=== PATIENT | female | born 1935 | race Caucasian/White ===

== ENCOUNTER → 2016-07-14 | Outpatient (CLI) | payer MEDICARE ==
[~2016-07-14] MED LIST: ACET325T14 PO; CEFD300C2 PO; CLOP75TA PO; FENO160T PO; GLIM1TAB2 PO; GLIP2.5T3 PO; LEVO750T26 PO; LINA5TAB PO; LISI-167 PO; LOVA40TA2 PO; METF10002 PO; METF500T4 PO; METH4TAB2 PO; METO25TA35 PO; MICA100V IV; NYST60PO TP; TRAM50TA2 PO
== END | disposition home or self-care (01) ==
LOC: RAD 14:17
PROVIDERS: ATTEND Family Medicine
DX: Z20.1 Contact with and (suspected) exposure to tuberculosis (principal); I34.8 Other nonrheumatic mitral valve disorders
CPT/HCPCS: 71020

== ENCOUNTER 2016-07-15 12:49 | Inpatient (IN) | payer MEDICARE ==
[~2016-07-15] VITALS: Ht 152.4 cm; Wt 54.7 kg
[~2016-07-15 12:49] MED LIST changes: -ACET325T14 PO; -GLIP2.5T3 PO; -METF500T4 PO; -METH4TAB2 PO; -TRAM50TA2 PO
[2016-07-15] MEDS ORDERED: IBUPROFEN 200 MG TABLET PO ONE (13:00)
[2016-07-15] MEDS ORDERED: IBUPROFEN 200 MG TABLET ONE (13:12)
[2016-07-15] MEDS ORDERED: METF500T4 PO (14:10)
[2016-07-15] MEDS ORDERED: LISI-167 PO (14:10)
[2016-07-15] MEDS ORDERED: GLIP2.5T3 PO (14:10)
[2016-07-15] MEDS ORDERED: ENALAPRILAT 1.25 MG/ML, 2ML IV ONE (15:00)
[2016-07-15] MEDS ORDERED: LABETALOL 5MG/ML, 20ML IVPush ONE (15:00)
[2016-07-15] MEDS ORDERED: ENALAPRILAT 1.25 MG/ML, 2ML ONE (15:02)
[2016-07-15 16:37] LABS: HEMOGLOBIN 12.2 g/dL (11.7-16.4)
[2016-07-15 16:46] LABS: BLOOD UREA NITROGEN 29 mg/dL (7-18)
[2016-07-15] MEDS ORDERED: methylPREDNISolone SOD SUCC 125 MG/2 ML IV ONE (17:00)
[2016-07-15] MEDS: INSULIN REGULAR 100 UNITS/ML, 3ML VIAL SQ-INSULIN SCH ×2 (17:00→21:58)
[2016-07-15] MEDS ORDERED: ONDANSETRON 2MG/ML, 2ML IVP PRN (17:00)
[2016-07-15] MEDS ORDERED: DOCUSATE 100 MG CAPSULE PO PRN (17:00)
[2016-07-15] MEDS ORDERED: methylPREDNISolone SOD SUCC 40 MG/ML IV ONE (17:00)
[2016-07-15] MEDS ORDERED: methylPREDNISolone SOD SUCC 125 MG/2 ML ONE (17:06)
[2016-07-15] MEDS ORDERED: LIDODERM 5% PATCH TD SCH (19:00)
[2016-07-15] MEDS ORDERED: ENOXAPARIN 40 MG/0.4 ML SQ SCH (19:00)
[2016-07-15] MEDS ORDERED: LOVASTATIN 40 MG TABLET PO SCH (21:00)
[2016-07-15] MEDS: METOPROLOL TARTRATE 25 MG TABLET PO SCH (21:57)
[2016-07-15] MEDS: FAMOTIDINE 20 MG TABLET PO SCH (21:57)
[2016-07-15] MEDS: LISINOPRIL 10 MG TABLET PO SCH (21:57)
[2016-07-16 02:13] VITALS: BP 131/64
[2016-07-16 05:35] LABS: HEMOGLOBIN 11.8 g/dL (11.7-16.4)
[2016-07-16 06:14] LABS: BLOOD UREA NITROGEN 36 mg/dL (7-18)
[2016-07-16] MEDS: ACETAMINOPHEN 325 MG TABLET PO PRN ×2 (07:51→13:20)
[2016-07-16] MEDS: METOPROLOL TARTRATE 25 MG TABLET PO SCH (07:52)
[2016-07-16] MEDS: INSULIN REGULAR 100 UNITS/ML, 3ML VIAL SQ-INSULIN SCH ×2 (07:52→11:00)
[2016-07-16] MEDS: FAMOTIDINE 20 MG TABLET PO SCH (07:53)
[2016-07-16] MEDS: LISINOPRIL 10 MG TABLET PO SCH (07:59)
[2016-07-16] MEDS ORDERED: GLIPizide ER 2.5 MG TABLET PO SCH (09:00)
[2016-07-16 10:32] VITALS: BP 157/71
[2016-07-16] MEDS ORDERED: ACET325T14 PO (10:44)
[2016-07-16] MEDS ORDERED: TRAM50TA2 PO (10:44)
[2016-07-16] MEDS ORDERED: METH4TAB2 PO (10:44)
[2016-07-16 13:13] VITALS: BP 187/70
[2016-07-16] MEDS ORDERED: ENOXAPARIN 30 MG/0.3 ML SQ SCH (19:00)
== END 2016-07-16 15:24 | disposition home or self-care (01) | DRG 542 ==
LOC: ED 14:20 → EDIP 16:54 → 3NE 18:18
PROVIDERS: ADMIT Hospitalist; ATTEND Hospitalist
PROC: 0T9B70Z Drainage of Bladder with Drainage Device, Via Natural or Artificial Opening (ICD-10-PCS; principal; 2016-07-15)
DX: M48.56XA Collapsed vertebra, not elsewhere classified, lumbar region, initial encounter for fracture (principal); I63.9 Cerebral infarction, unspecified; G81.94 Hemiplegia, unspecified affecting left nondominant side; M54.9 Dorsalgia, unspecified; E11.9 Type 2 diabetes mellitus without complications; E78.5 Hyperlipidemia, unspecified; F03.90 Unspecified dementia, unspecified severity, without behavioral disturbance, psychotic disturbance, mood disturbance, and anxiety; Z66 Do not resuscitate; G51.0 Bell's palsy; I16.0 Hypertensive urgency; I11.0 Hypertensive heart disease with heart failure; I50.9 Heart failure, unspecified; M19.90 Unspecified osteoarthritis, unspecified site; M48.06 Spinal stenosis, lumbar region; R32 Unspecified urinary incontinence; Z83.3 Family history of diabetes mellitus; Z88.8 Allergy status to other drugs, medicaments and biological substances; Z90.710 Acquired absence of both cervix and uterus; Z86.73 Personal history of transient ischemic attack (TIA), and cerebral infarction without residual deficits; Z90.49 Acquired absence of other specified parts of digestive tract
CPT/HCPCS: 36415; 72131; 72148; 80048; 81001; 82040; 82962; 85025; 87086; 87106; 96374; 96375; J1650; J1815; J2920; J7512

== ENCOUNTER → 2016-12-09 | Outpatient (CLI) | payer MEDICARE ==
[~2016-12-09] MED LIST changes: +ACET325T14 PO; -CEFD300C2 PO; +CEFD300C37 PO; +GLIP2.5T3 PO; +METF500T4 PO; +METH4TAB2 PO; -MICA100V IV; +MICA100V3 IV; +TRAM50TA2 PO
== END | disposition home or self-care (01) ==
LOC: CFH 14:16
PROVIDERS: ATTEND Family Medicine
DX: Z13.820 Encounter for screening for osteoporosis (principal); M81.0 Age-related osteoporosis without current pathological fracture; N95.9 Unspecified menopausal and perimenopausal disorder
CPT/HCPCS: 77080

== ENCOUNTER 2017-01-24 07:30 | Inpatient (IN) | payer MEDICARE ==
[~2017-01-24] VITALS: Ht 152.4 cm; Wt 58.8 kg
[2017-01-24] MEDS ORDERED: ACETAMINOPHEN 325 MG TABLET ONE (07:46)
[2017-01-24] MEDS ORDERED: ONDANSETRON 2MG/ML, 2ML ONE (07:46)
[2017-01-24] MEDS ORDERED: ACETAMINOPHEN 325 MG TABLET PO ONE (08:00)
[2017-01-24] MEDS ORDERED: SODIUM CHLORIDE FLUSH 10ML SYR IVF ONE (08:00)
[2017-01-24] MEDS ORDERED: SODIUM CHLORIDE 0.9% 1,000ML IVBOLUS ONE (08:00)
[2017-01-24] MEDS ORDERED: ONDANSETRON 2MG/ML, 2ML IVPush ONE (08:00)
[2017-01-24 08:08] LABS: HEMATOCRIT 38.6 % (34.6-47.8); HEMOGLOBIN 12.9 g/dL (11.7-16.4); WHITE BLOOD COUNT 10.9 x10^3/uL (3.4-10)
[2017-01-24 08:30] LABS: BLOOD UREA NITROGEN 29 mg/dL (7-18)
[2017-01-24] MEDS ORDERED: CEFTRIAXONE PMX 1GM/50ML 50 ML IVPB ONE (09:00)
[2017-01-24] MEDS ORDERED: CEFTRIAXONE PMX 1GM/50ML 50 ML ONE (09:01)
[2017-01-24] MEDS ORDERED: SODIUM CHLORIDE 0.9% 1,000 ML IV ONE (09:02)
[2017-01-24] MEDS ORDERED: SODIUM CHLORIDE FLUSH 10ML SYR IVF PRN (09:30)
[2017-01-24] MEDS: SODIUM CHLORIDE 0.9% 1,000 ML IV SCH ×2 (09:44→21:34)
[2017-01-24] MEDS ORDERED: DEXTROSE 50%, 50ML SYRINGE IVPush PRN (10:00)
[2017-01-24] MEDS ORDERED: DOCUSATE 100 MG CAPSULE PO PRN (10:00)
[2017-01-24] MEDS ORDERED: BISACODYL 10 MG SUPP PR PRN (10:00)
[2017-01-24] MEDS ORDERED: ONDANSETRON ODT 4 MG PO PRN (10:00)
[2017-01-24] MEDS ORDERED: POLYETHYLENE GLYCOL 17 GM PACKET PO PRN (10:00)
[2017-01-24] MEDS ORDERED: ACETAMINOPHEN 325 MG TABLET PO PRN (10:00)
[2017-01-24] MEDS ORDERED: ONDANSETRON 2MG/ML, 2ML IVPush PRN (10:00)
[2017-01-24] MEDS ORDERED: GLUCAGON 1 MG IM PRN (10:00)
[2017-01-24] MEDS ORDERED: DEXTROSE 4 GM TAB.CHEW PO PRN (10:00)
[2017-01-24 12:13] VITALS: BP 196/79
[2017-01-24] MEDS: HEPARIN 5,000 UNITS/ML, 1ML SQ SCH ×3 (12:22→21:33)
[2017-01-24 13:43] VITALS: BP 172/78
[2017-01-24] MEDS: INSULIN REGULAR 100 UNITS/ML, 3ML VIAL SQ-INSULIN SCH ×3 (13:54→21:00)
[2017-01-24] MEDS: NYSTATIN/TRIAMCINOLONE CRM 15GM TP SCH ×2 (13:54→21:32)
[2017-01-24 19:52] VITALS: BP 163/72
[2017-01-24] MEDS: METOPROLOL TARTRATE 25 MG TABLET PO SCH (21:33)
[2017-01-24] MEDS: SODIUM CHLORIDE FLUSH 10ML SYR IVF SCH (21:33)
[2017-01-24] MEDS: LOVASTATIN 40 MG TABLET PO SCH (21:33)
[2017-01-25] VITALS (10 sets, daily range): BP systolic 130–217; BP diastolic 56–81
[2017-01-25] MEDS: LABETALOL 5MG/ML, 20ML IVPush PRN ×2 (02:21→08:35)
[2017-01-25 05:11] LABS: HEMATOCRIT 32.5 % (34.6-47.8); HEMOGLOBIN 10.9 g/dL (11.7-16.4); WHITE BLOOD COUNT 5.9 x10^3/uL (3.4-10)
[2017-01-25] MEDS: HEPARIN 5,000 UNITS/ML, 1ML SQ SCH ×3 (05:34→20:18)
[2017-01-25 05:36] LABS: ASPARTATE AMINO TRANSFERASE 19 U/L (15-37); BLOOD UREA NITROGEN 20 mg/dL (7-18)
[2017-01-25] MEDS: CLOPIDOGREL 75 MG TABLET PO SCH (08:15)
[2017-01-25] MEDS: METOPROLOL TARTRATE 25 MG TABLET PO SCH ×2 (08:16→20:19)
[2017-01-25] MEDS: INSULIN REGULAR 100 UNITS/ML, 3ML VIAL SQ-INSULIN SCH ×4 (08:19→20:19)
[2017-01-25] MEDS: SODIUM CHLORIDE FLUSH 10ML SYR IVF SCH ×2 (08:20→20:19)
[2017-01-25] MEDS: NYSTATIN/TRIAMCINOLONE CRM 15GM TP SCH ×2 (08:21→20:18)
[2017-01-25] MEDS: SENNA/DOCUSATE TABLET PO SCH (08:35)
[2017-01-25] MEDS: CEFTRIAXONE PMX 1GM/50ML 50 ML IV SCH (08:57)
[2017-01-25] MEDS: LISINOPRIL 10 MG TABLET PO SCH ×2 (10:12→20:19)
[2017-01-25] MEDS: SODIUM CHLORIDE 0.9% 1,000 ML IV SCH (12:05)
[2017-01-25] MEDS: hydrALAzine 20 MG/ML, 1ML IV PRN (17:18)
[2017-01-25] MEDS: LOVASTATIN 40 MG TABLET PO SCH (20:19)
[2017-01-26] VITALS (7 sets, daily range): BP systolic 124–182; BP diastolic 56–80
[2017-01-26] MEDS: SODIUM CHLORIDE 0.9% 1,000 ML IV SCH (02:02)
[2017-01-26] MEDS: hydrALAzine 20 MG/ML, 1ML IV PRN ×2 (02:33→17:53)
[2017-01-26] MEDS: HEPARIN 5,000 UNITS/ML, 1ML SQ SCH ×3 (04:31→21:24)
[2017-01-26] MEDS: INSULIN REGULAR 100 UNITS/ML, 3ML VIAL SQ-INSULIN SCH ×4 (07:46→21:25)
[2017-01-26] MEDS: CEFTRIAXONE PMX 1GM/50ML 50 ML IV SCH ×2 (08:56→09:04)
[2017-01-26] MEDS: SODIUM CHLORIDE FLUSH 10ML SYR IVF SCH ×2 (08:57→21:24)
[2017-01-26] MEDS: METOPROLOL TARTRATE 25 MG TABLET PO SCH ×2 (09:06→21:24)
[2017-01-26] MEDS: LISINOPRIL 10 MG TABLET PO SCH ×2 (09:07→21:24)
[2017-01-26] MEDS: SENNA/DOCUSATE TABLET PO SCH (09:08)
[2017-01-26] MEDS: CLOPIDOGREL 75 MG TABLET PO SCH (09:09)
[2017-01-26] MEDS: NYSTATIN/TRIAMCINOLONE CRM 15GM TP SCH ×2 (12:08→21:25)
[2017-01-26] MEDS: LOVASTATIN 40 MG TABLET PO SCH (21:24)
[2017-01-27] VITALS (7 sets, daily range): BP systolic 145–215; BP diastolic 57–76
[2017-01-27] MEDS: HEPARIN 5,000 UNITS/ML, 1ML SQ SCH ×3 (06:12→20:38)
[2017-01-27] MEDS: INSULIN REGULAR 100 UNITS/ML, 3ML VIAL SQ-INSULIN SCH ×4 (07:49→20:37)
[2017-01-27] MEDS: SENNA/DOCUSATE TABLET PO SCH (08:29)
[2017-01-27] MEDS: LISINOPRIL 10 MG TABLET PO SCH (08:29)
[2017-01-27] MEDS: SODIUM CHLORIDE FLUSH 10ML SYR IVF SCH ×2 (08:29→20:15)
[2017-01-27] MEDS: METOPROLOL TARTRATE 25 MG TABLET PO SCH ×2 (08:29→20:37)
[2017-01-27] MEDS: CLOPIDOGREL 75 MG TABLET PO SCH (08:29)
[2017-01-27] MEDS: NYSTATIN/TRIAMCINOLONE CRM 15GM TP SCH ×2 (08:29→20:38)
[2017-01-27] MEDS: CEFTRIAXONE PMX 1GM/50ML 50 ML IV SCH (09:14)
[2017-01-27] MEDS ORDERED: NITR100C PO (15:25)
[2017-01-27] MEDS: LOVASTATIN 40 MG TABLET PO SCH (20:37)
[2017-01-27] MEDS: LISINOPRIL 20 MG TABLET PO SCH (20:38)
[2017-01-28 02:00] VITALS: BP 178/72
[2017-01-28] MEDS: HEPARIN 5,000 UNITS/ML, 1ML SQ SCH ×2 (05:00→12:04)
[2017-01-28] MEDS: INSULIN REGULAR 100 UNITS/ML, 3ML VIAL SQ-INSULIN SCH ×2 (07:00→12:03)
[2017-01-28 07:57] VITALS: BP 173/70
[2017-01-28] MEDS: METOPROLOL TARTRATE 25 MG TABLET PO SCH (08:00)
[2017-01-28] MEDS: CLOPIDOGREL 75 MG TABLET PO SCH (08:00)
[2017-01-28] MEDS: LISINOPRIL 20 MG TABLET PO SCH (08:01)
[2017-01-28] MEDS: NYSTATIN/TRIAMCINOLONE CRM 15GM TP SCH (08:01)
[2017-01-28] MEDS: SODIUM CHLORIDE FLUSH 10ML SYR IVF SCH (09:00)
[2017-01-28] MEDS: CEFTRIAXONE PMX 1GM/50ML 50 ML IV SCH (09:00)
[2017-01-28] MEDS ORDERED: SENNA/DOCUSATE TABLET PO SCH (09:00)
[2017-01-28] MEDS ORDERED: LISI-167 PO (10:24)
[2017-01-28] MEDS ORDERED: NITROFURANTOIN (MACROBID) 100 MG CAPSULE PO SCH (10:30)
[2017-01-28 10:42] VITALS: BP 121/63
[2017-01-28] MEDS ORDERED: SULF1TAB24 PO (10:46)
[2017-01-28] MEDS ORDERED: SULFAMETH./TRIMETHOPRIM DS 800MG/160MG TABLET PO ONE (11:00)
[2017-01-28 12:18] VITALS: BP 162/81
[2017-01-28] MEDS ORDERED: SULFAMETH./TRIMETHOPRIM DS 800MG/160MG TABLET PO SCH (21:00)
== END 2017-01-28 16:34 | DRG 871 ==
LOC: ED 08:11 → EDIP 09:02 → 4EST 11:02
PROVIDERS: ADMIT Internal Medicine; ATTEND Internal Medicine
DX: A41.9 Sepsis, unspecified organism (principal); G93.41 Metabolic encephalopathy; N17.0 Acute kidney failure with tubular necrosis; E44.0 Moderate protein-calorie malnutrition; I69.852 Hemiplegia and hemiparesis following other cerebrovascular disease affecting left dominant side; I13.0 Hypertensive heart and chronic kidney disease with heart failure and stage 1 through stage 4 chronic kidney disease, or unspecified chronic kidney disease; J98.11 Atelectasis; Z66 Do not resuscitate; N30.91 Cystitis, unspecified with hematuria; Z68.22 Body mass index [BMI] 22.0-22.9, adult; E11.21 Type 2 diabetes mellitus with diabetic nephropathy; E11.65 Type 2 diabetes mellitus with hyperglycemia; B96.1 Klebsiella pneumoniae [K. pneumoniae] as the cause of diseases classified elsewhere; E11.22 Type 2 diabetes mellitus with diabetic chronic kidney disease; E78.5 Hyperlipidemia, unspecified; F03.90 Unspecified dementia, unspecified severity, without behavioral disturbance, psychotic disturbance, mood disturbance, and anxiety; H40.9 Unspecified glaucoma; I50.9 Heart failure, unspecified; L22 Diaper dermatitis; N18.3 Chronic kidney disease, stage 3 (moderate); Z79.84 Long term (current) use of oral hypoglycemic drugs; Z87.440 Personal history of urinary (tract) infections
CPT/HCPCS: 36415; 71010; 80048; 80053; 81001; 82040; 82962; 83036; 83605; 84145; 85025; 87040; 87077; 87086; 87186; 93005; 96361; 96365; 96366; 96375; J0696; J1644; J1815; J2405; J0360; J7030

== ENCOUNTER 2017-02-02 08:43 | Inpatient (IN) | payer MEDICARE ==
[~2017-02-02] VITALS: Ht 152.4 cm; Wt 56.0 kg
[~2017-02-02 08:43] MED LIST changes: +NITR100C PO; +SULF1TAB24 PO
[2017-02-02] MEDS ORDERED: SODIUM CHLORIDE FLUSH 10ML SYR IVF ONE (09:00)
[2017-02-02 09:23] LABS: HEMATOCRIT 40.4 % (34.6-47.8); HEMOGLOBIN 13.3 g/dL (11.7-16.4); WHITE BLOOD COUNT 30.4 x10^3/uL (3.4-10)
[2017-02-02] MEDS ORDERED: NITR100C PO (09:28)
[2017-02-02] MEDS ORDERED: METO5TAB57 PO (09:28)
[2017-02-02] MEDS ORDERED: LISI-170 PO (09:28)
[2017-02-02 09:32] LABS: ASPARTATE AMINO TRANSFERASE 110 U/L (15-37); BLOOD UREA NITROGEN 38 mg/dL (7-18)
[2017-02-02 10:22] LABS: DIFF TOTAL CELLS COUNTED 100 CELL DIFF
[2017-02-02 10:28] LABS: VERIFY COUNTS? YES
[2017-02-02] MEDS ORDERED: OMNIPAQUE 350 MG/ML, 100ML BOTTLE ONE (10:38)
[2017-02-02] MEDS ORDERED: PIPERACILLIN/TAZO/PMX 3.375GM 50 ML IV ONE (11:00)
[2017-02-02] MEDS ORDERED: SODIUM CHLORIDE 0.9% 1,000 ML IV ONE (11:01)
[2017-02-02] MEDS ORDERED: PIPERACILLIN/TAZO/PMX 3.375GM 50 ML ONE (11:31)
[2017-02-02 12:16] VITALS: BP 158/73
[2017-02-02] MEDS ORDERED: DEXTROSE 4 GM TAB.CHEW PO PRN (13:00)
[2017-02-02] MEDS ORDERED: PHARMACY MAY ADJ FOR RENAL FX MC PRN (13:00)
[2017-02-02] MEDS ORDERED: ONDANSETRON 2MG/ML, 2ML IVPush PRN (13:00)
[2017-02-02] MEDS ORDERED: BISACODYL 10 MG SUPP PR PRN (13:00)
[2017-02-02] MEDS ORDERED: morphine SULFATE 10 MG/ML, 1ML IVPush PRN (13:00)
[2017-02-02] MEDS ORDERED: ACETAMINOPHEN 325 MG SUPP PR PRN (13:00)
[2017-02-02] MEDS ORDERED: LABETALOL 5MG/ML, 20ML IVPush PRN (13:00)
[2017-02-02] MEDS ORDERED: DEXTROSE 50%, 50ML SYRINGE IVPush PRN (13:00)
[2017-02-02] MEDS ORDERED: GLUCAGON 1 MG IM PRN (13:00)
[2017-02-02 14:08] VITALS: BP 164/62
[2017-02-02] MEDS: SODIUM CHLORIDE 0.9% 1,000 ML IV SCH (14:26)
[2017-02-02] MEDS: HEPARIN 5,000 UNITS/ML, 1ML SQ SCH (14:27)
[2017-02-02] MEDS: INSULIN ASPART 100 UNITS/ML, PEN SQ-INSULIN SCH ×2 (15:25→18:40)
[2017-02-02] MEDS ORDERED: VANCOMYCIN PER PHARMACY MC PRN (17:00)
[2017-02-02] MEDS ORDERED: PHARMACOKINETIC MONITORING MC PRN (17:30)
[2017-02-02] MEDS ORDERED: PHARMACOKINETIC CONSULTATION MC ONE (17:30)
[2017-02-02] MEDS ORDERED: VANCOMYCIN PMX 1GM/200ML 200 ML IV SCH (18:30)
[2017-02-02] MEDS: PIPERACILLIN/TAZO/PMX 3.375GM 50 ML IV SCH (18:30)
[2017-02-02 20:03] VITALS: BP 114/51
[2017-02-02] MEDS: SODIUM CHLORIDE FLUSH 10ML SYR IVF SCH (21:00)
[2017-02-03] MEDS: PIPERACILLIN/TAZO/PMX 3.375GM 50 ML IV SCH ×2 (00:20→06:00)
[2017-02-03] MEDS: HEPARIN 5,000 UNITS/ML, 1ML SQ SCH ×3 (00:38→19:43)
[2017-02-03] MEDS: INSULIN ASPART 100 UNITS/ML, PEN SQ-INSULIN SCH ×4 (00:39→20:43)
[2017-02-03 03:02] VITALS: BP 118/55
[2017-02-03] MEDS: SODIUM CHLORIDE 0.9% 1,000 ML IV SCH (04:36)
[2017-02-03 05:13] LABS: HEMATOCRIT 35.2 % (34.6-47.8); HEMOGLOBIN 11.4 g/dL (11.7-16.4); WHITE BLOOD COUNT 23.5 x10^3/uL (3.4-10)
[2017-02-03 05:43] LABS: ASPARTATE AMINO TRANSFERASE 462 U/L (15-37); BLOOD UREA NITROGEN 51 mg/dL (7-18)
[2017-02-03 06:08] LABS: DIFF TOTAL CELLS COUNTED 100 CELL DIFF
[2017-02-03 06:11] LABS: LARGE PLATELETS 1+; VERIFY COUNTS? YES
[2017-02-03 07:10] VITALS: BP 124/67
[2017-02-03 08:26] VITALS: BP 136/78
[2017-02-03] MEDS ORDERED: POTASSIUM CHLORIDE 20 MEQ in SODIUM CHLORIDE 0.9% 250 ML IV ONE (09:00)
[2017-02-03] MEDS: SODIUM CHLORIDE FLUSH 10ML SYR IVF SCH ×2 (09:29→20:44)
[2017-02-03] MEDS ORDERED: LIDOCAINE 1%, 20ML ONE (12:36)
[2017-02-03] MEDS ORDERED: MIDAZOLAM 1 MG/ML, 5ML ONE (12:40)
[2017-02-03] MEDS ORDERED: NALOXONE 1 MG/ML, 2ML ONE (12:40)
[2017-02-03] MEDS ORDERED: FENTANYL PF 100 MCG/2ML ONE (12:40)
[2017-02-03] MEDS ORDERED: FLUMAZENIL 0.1 MG/1 ML, 5ML ONE (12:40)
[2017-02-03] MEDS ORDERED: POTASSIUM CHLORIDE 20 MEQ in SODIUM CHLORIDE 0.9% 1,000 ML IV SCH (12:41)
[2017-02-03 13:55] VITALS: BP 124/67
[2017-02-03 15:03] VITALS: BP 192/75
[2017-02-03] MEDS: PIPERACILLIN/TAZO(ZOSYN) 2.25 GM in NS 50 ML IVPB SCH ×2 (15:20→20:43)
[2017-02-03] MEDS ORDERED: VANCOMYCIN PMX 1GM/200ML 200 ML IV SCH (18:00)
[2017-02-03] MEDS: POTASSIUM CHLORIDE 20 MEQ in SODIUM CHLORIDE 0.9% 1,000 ML IV SCH (19:42)
[2017-02-03 19:47] VITALS: BP 128/62
[2017-02-04] MEDS: HEPARIN 5,000 UNITS/ML, 1ML SQ SCH ×3 (00:51→16:30)
[2017-02-04] MEDS: INSULIN ASPART 100 UNITS/ML, PEN SQ-INSULIN SCH ×5 (01:00→23:53)
[2017-02-04] MEDS: PIPERACILLIN/TAZO(ZOSYN) 2.25 GM in NS 50 ML IVPB SCH ×4 (03:21→23:09)
[2017-02-04 03:28] VITALS: BP 145/63
[2017-02-04] MEDS: POTASSIUM CHLORIDE 20 MEQ in SODIUM CHLORIDE 0.9% 1,000 ML IV SCH (03:40)
[2017-02-04 06:45] VITALS: BP 165/62
[2017-02-04] MEDS: SODIUM CHLORIDE FLUSH 10ML SYR IVF SCH ×2 (09:26→23:09)
[2017-02-04 09:47] LABS: BLOOD UREA NITROGEN 44 mg/dL (7-18); HEMATOCRIT 32.8 % (34.6-47.8); HEMOGLOBIN 10.7 g/dL (11.7-16.4); WHITE BLOOD COUNT 12.1 x10^3/uL (3.4-10)
[2017-02-04 10:04] LABS: ASPARTATE AMINO TRANSFERASE 2362 U/L (15-37)
[2017-02-04 14:31] VITALS: BP 164/72
[2017-02-04 18:32] VITALS: BP 166/68
[2017-02-04] MEDS: VANCOMYCIN PMX 1GM/200ML 200 ML IV SCH (19:43)
[2017-02-05 00:45] VITALS: BP 160/78
[2017-02-05] MEDS: HEPARIN 5,000 UNITS/ML, 1ML SQ SCH ×3 (00:59→17:27)
[2017-02-05] MEDS: PIPERACILLIN/TAZO(ZOSYN) 2.25 GM in NS 50 ML IVPB SCH ×4 (04:18→21:35)
[2017-02-05 05:56] LABS: ASPARTATE AMINO TRANSFERASE 842 U/L (15-37); BLOOD UREA NITROGEN 30 mg/dL (7-18)
[2017-02-05 06:30] VITALS: BP 197/75
[2017-02-05] MEDS: INSULIN ASPART 100 UNITS/ML, PEN SQ-INSULIN SCH ×3 (06:50→17:28)
[2017-02-05] MEDS: hydrALAzine 20 MG/ML, 1ML IV PRN (06:55)
[2017-02-05] MEDS: SODIUM CHLORIDE FLUSH 10ML SYR IVF SCH ×2 (09:14→21:35)
[2017-02-05 13:48] VITALS: BP 164/64
[2017-02-05 18:48] VITALS: BP 170/68
[2017-02-06] MEDS: INSULIN ASPART 100 UNITS/ML, PEN SQ-INSULIN SCH ×5 (00:18→23:21)
[2017-02-06 00:55] VITALS: BP 195/72
[2017-02-06] MEDS: HEPARIN 5,000 UNITS/ML, 1ML SQ SCH ×3 (01:29→17:00)
[2017-02-06] MEDS: PIPERACILLIN/TAZO(ZOSYN) 2.25 GM in NS 50 ML IVPB SCH ×4 (04:36→22:53)
[2017-02-06 05:05] LABS: BLOOD UREA NITROGEN 20 mg/dL (7-18)
[2017-02-06 05:11] LABS: ASPARTATE AMINO TRANSFERASE 154 U/L (15-37)
[2017-02-06 05:17] LABS: HEMATOCRIT 32.3 % (34.6-47.8); HEMOGLOBIN 10.5 g/dL (11.7-16.4); WHITE BLOOD COUNT 8.9 x10^3/uL (3.4-10)
[2017-02-06 07:09] VITALS: BP 185/73
[2017-02-06] MEDS: VANCOMYCIN PMX 1GM/200ML 200 ML IV SCH (07:24)
[2017-02-06] MEDS: SODIUM CHLORIDE FLUSH 10ML SYR IVF SCH ×2 (08:36→23:12)
[2017-02-06] MEDS: POTASSIUM CHLORIDE 20 MEQ TAB.ER.PRT PO SCH ×3 (13:20→23:12)
[2017-02-06 13:27] VITALS: BP 196/73
[2017-02-06] MEDS: hydrALAzine 20 MG/ML, 1ML IV PRN (14:22)
[2017-02-06 19:17] VITALS: BP 153/68
[2017-02-07 01:07] VITALS: BP 166/75
[2017-02-07] MEDS: HEPARIN 5,000 UNITS/ML, 1ML SQ SCH ×3 (01:16→16:01)
[2017-02-07 04:42] LABS: HEMATOCRIT 32.9 % (34.6-47.8); HEMOGLOBIN 10.7 g/dL (11.7-16.4)
[2017-02-07] MEDS: PIPERACILLIN/TAZO(ZOSYN) 2.25 GM in NS 50 ML IVPB SCH ×3 (04:49→15:56)
[2017-02-07 04:59] LABS: ASPARTATE AMINO TRANSFERASE 54 U/L (15-37); BLOOD UREA NITROGEN 15 mg/dL (7-18)
[2017-02-07] MEDS: INSULIN ASPART 100 UNITS/ML, PEN SQ-INSULIN SCH ×4 (07:00→23:36)
[2017-02-07 09:38] VITALS: BP 160/73
[2017-02-07] MEDS: SODIUM CHLORIDE FLUSH 10ML SYR IVF SCH ×2 (10:27→23:35)
[2017-02-07] MEDS: POTASSIUM CHLORIDE 20 MEQ TAB.ER.PRT PO SCH (11:08)
[2017-02-07 16:32] VITALS: BP_SYST 199; BP_SYST 202; BP_DIAS 81; BP_DIAS 85
[2017-02-07] MEDS: hydrALAzine 20 MG/ML, 1ML IV PRN (16:41)
[2017-02-07 17:44] VITALS: BP 133/63
[2017-02-07 19:32] VITALS: BP 145/57
[2017-02-07] MEDS: VANCOMYCIN PMX 1GM/200ML 200 ML IV SCH (23:35)
[2017-02-08] MEDS: PIPERACILLIN/TAZO/PMX 3.375GM 50 ML IV SCH ×4 (01:02→18:37)
[2017-02-08] MEDS: HEPARIN 5,000 UNITS/ML, 1ML SQ SCH ×3 (01:11→17:07)
[2017-02-08 01:54] VITALS: BP 141/62
[2017-02-08 05:33] LABS: WHITE BLOOD COUNT 11.9 x10^3/uL (3.4-10)
[2017-02-08 05:55] LABS: ASPARTATE AMINO TRANSFERASE 28 U/L (15-37); BLOOD UREA NITROGEN 13 mg/dL (7-18)
[2017-02-08 06:45] VITALS: BP 160/67
[2017-02-08] MEDS: INSULIN ASPART 100 UNITS/ML, PEN SQ-INSULIN SCH ×4 (07:36→20:56)
[2017-02-08] MEDS: SODIUM CHLORIDE FLUSH 10ML SYR IVF SCH ×2 (09:59→20:38)
[2017-02-08 11:38] VITALS: BP 158/65
[2017-02-08 13:26] VITALS: BP 159/68
[2017-02-08 19:51] VITALS: BP 213/79
[2017-02-08] MEDS: hydrALAzine 20 MG/ML, 1ML IV PRN (20:38)
[2017-02-09] MEDS: PIPERACILLIN/TAZO/PMX 3.375GM 50 ML IV SCH ×4 (00:50→17:52)
[2017-02-09] MEDS: HEPARIN 5,000 UNITS/ML, 1ML SQ SCH ×3 (00:53→17:20)
[2017-02-09 02:25] VITALS: BP 164/74
[2017-02-09 05:27] LABS: HEMATOCRIT 36.4 % (34.6-47.8); HEMOGLOBIN 11.9 g/dL (11.7-16.4); WHITE BLOOD COUNT 8.7 x10^3/uL (3.4-10)
[2017-02-09 05:38] LABS: ASPARTATE AMINO TRANSFERASE 24 U/L (15-37); BLOOD UREA NITROGEN 12 mg/dL (7-18)
[2017-02-09] MEDS: INSULIN ASPART 100 UNITS/ML, PEN SQ-INSULIN SCH ×4 (06:46→23:17)
[2017-02-09] MEDS: VANCOMYCIN PMX 1GM/200ML 200 ML IV SCH (07:50)
[2017-02-09 08:52] VITALS: BP 166/65
[2017-02-09] MEDS: SODIUM CHLORIDE FLUSH 10ML SYR IVF SCH ×2 (09:00→23:17)
[2017-02-09] MEDS: AMLODIPINE 5 MG TABLET PO SCH (09:15)
[2017-02-09 15:06] VITALS: BP 139/56
[2017-02-09] MEDS: POTASSIUM CHLORIDE 20 MEQ TAB.ER.PRT PO SCH (17:47)
[2017-02-09 19:04] VITALS: BP 171/82
[2017-02-10] MEDS: PIPERACILLIN/TAZO/PMX 3.375GM 50 ML IV SCH ×3 (00:37→12:13)
[2017-02-10] MEDS: HEPARIN 5,000 UNITS/ML, 1ML SQ SCH ×3 (01:50→17:42)
[2017-02-10 03:45] VITALS: BP 203/77
[2017-02-10] MEDS: hydrALAzine 20 MG/ML, 1ML IV PRN (04:06)
[2017-02-10 05:06] LABS: HEMATOCRIT 34.1 % (34.6-47.8); HEMOGLOBIN 11.3 g/dL (11.7-16.4); WHITE BLOOD COUNT 8.9 x10^3/uL (3.4-10)
[2017-02-10 05:21] LABS: BLOOD UREA NITROGEN 14 mg/dL (7-18)
[2017-02-10] MEDS: POTASSIUM CHLORIDE 20 MEQ TAB.ER.PRT PO SCH ×2 (08:25→12:13)
[2017-02-10] MEDS: INSULIN ASPART 100 UNITS/ML, PEN SQ-INSULIN SCH ×3 (08:25→16:00)
[2017-02-10] MEDS: AMLODIPINE 5 MG TABLET PO SCH (08:25)
[2017-02-10] MEDS: SODIUM CHLORIDE FLUSH 10ML SYR IVF SCH (08:26)
[2017-02-10 09:25] VITALS: BP 138/67
[2017-02-10 14:10] VITALS: BP 132/68
[2017-02-10] MEDS ORDERED: AMOX1TAB12 PO (17:20)
[2017-02-10] MEDS ORDERED: LACTOBACILLUS CHEW TABLET PO SCH (21:00)
[2017-02-10] MEDS ORDERED: AMOXICILLIN/CLAV 875-125MG TABLET PO SCH (21:00)
== END 2017-02-10 18:00 | DRG 871 ==
LOC: ED 09:26 → 4NOR 10:47
PROVIDERS: ADMIT Internal Medicine; ATTEND Internal Medicine
PROC: 0T9B70Z Drainage of Bladder with Drainage Device, Via Natural or Artificial Opening (ICD-10-PCS; principal; 2017-02-02)
PROC: 0F9430Z Drainage of Gallbladder with Drainage Device, Percutaneous Approach (ICD-10-PCS; 2017-02-03)
DX: A41.9 Sepsis, unspecified organism (principal); N17.0 Acute kidney failure with tubular necrosis; K72.00 Acute and subacute hepatic failure without coma; E44.0 Moderate protein-calorie malnutrition; K81.0 Acute cholecystitis; I50.9 Heart failure, unspecified; I11.0 Hypertensive heart disease with heart failure; H40.9 Unspecified glaucoma; E11.65 Type 2 diabetes mellitus with hyperglycemia; E11.21 Type 2 diabetes mellitus with diabetic nephropathy; F01.50 Vascular dementia, unspecified severity, without behavioral disturbance, psychotic disturbance, mood disturbance, and anxiety; I67.9 Cerebrovascular disease, unspecified; K57.90 Diverticulosis of intestine, part unspecified, without perforation or abscess without bleeding; M81.0 Age-related osteoporosis without current pathological fracture; R65.20 Severe sepsis without septic shock; Z66 Do not resuscitate; Z87.440 Personal history of urinary (tract) infections; Z86.73 Personal history of transient ischemic attack (TIA), and cerebral infarction without residual deficits; Z90.710 Acquired absence of both cervix and uterus; Z88.8 Allergy status to other drugs, medicaments and biological substances; Z82.49 Family history of ischemic heart disease and other diseases of the circulatory system; Z83.3 Family history of diabetes mellitus
CPT/HCPCS: 36415; 47490; 74176; 75989; 80048; 80053; 80202; 81001; 82010; 82140; 82947; 82962; 83605; 83690; 83735; 84145; 85025; 85610; 87040; 87070; 87075; 87205; 87324; 93005; 99285; J1644; J1815; J2250; J2543; J3010; J3370; J3480; J3490; Q9967; C1729; J0360; J2270; J2310; J7030; J7050

== ENCOUNTER 2017-03-07 11:22 | Inpatient (IN) | payer MEDICARE ==
[~2017-03-07] VITALS: Ht 162.6 cm; Wt 64.0 kg
[~2017-03-07 11:22] MED LIST changes: +AMOX1TAB12 PO; +LISI-170 PO; +METO5TAB57 PO
[2017-03-07] MEDS ORDERED: ONDANSETRON 2MG/ML, 2ML IVPush ONE (12:00)
[2017-03-07] MEDS ORDERED: SODIUM CHLORIDE 0.9% 1,000ML IVBOLUS ONE (12:00)
[2017-03-07] MEDS ORDERED: SODIUM CHLORIDE FLUSH 10ML SYR IVF ONE (12:00)
[2017-03-07 12:38] LABS: HEMATOCRIT 33.2 % (34.6-47.8); HEMOGLOBIN 10.7 g/dL (11.7-16.4); WHITE BLOOD COUNT 18.1 x10^3/uL (3.4-10)
[2017-03-07 12:48] LABS: BLOOD UREA NITROGEN 23 mg/dL (7-18)
[2017-03-07 12:51] LABS: ASPARTATE AMINO TRANSFERASE 315 U/L (15-37)
[2017-03-07] MEDS ORDERED: OMNIPAQUE 350 MG/ML, 100ML BOTTLE ONE (13:17)
[2017-03-07] MEDS ORDERED: ONDANSETRON 2MG/ML, 2ML ONE (13:18)
[2017-03-07] MEDS ORDERED: PIPERACILLIN/TAZO/PMX 3.375GM 50 ML IV ONE (14:00)
[2017-03-07] MEDS ORDERED: PIPERACILLIN/TAZO/PMX 3.375GM 50 ML ONE (14:02)
[2017-03-07] MEDS ORDERED: morphine SULFATE 10 MG/ML, 1ML IVPush PRN (15:30)
[2017-03-07] MEDS ORDERED: PHARMACY MAY ADJ FOR RENAL FX MC PRN (15:30)
[2017-03-07] MEDS ORDERED: ONDANSETRON 2MG/ML, 2ML IVPush PRN ×2 (15:30)
[2017-03-07 16:00] VITALS: BP 134/73
[2017-03-07] MEDS ORDERED: GLUCAGON 1 MG IM PRN (16:00)
[2017-03-07] MEDS ORDERED: DEXTROSE 50%, 50ML SYRINGE IVPush PRN (16:00)
[2017-03-07] MEDS ORDERED: DEXTROSE 4 GM TAB.CHEW PO PRN (16:00)
[2017-03-07] MEDS: D5%-LR+KCL 20MEQ 1,000 ML IV SCH (16:44)
[2017-03-07] MEDS: METRONIDAZOLE PMX 500MG/100ML 100 ML IV SCH ×2 (16:44→23:45)
[2017-03-07] MEDS: INSULIN REGULAR 100 UNITS/ML, 3ML VIAL SQ-INSULIN SCH ×2 (16:45→20:23)
[2017-03-07] MEDS: URSODIOL 300 MG CAPSULE PO SCH ×3 (16:45→20:26)
[2017-03-07 19:54] VITALS: BP 151/75
[2017-03-07] MEDS: PIPERACILLIN/TAZO/PMX 3.375GM 50 ML IV SCH (20:02)
[2017-03-07] MEDS: SODIUM CHLORIDE FLUSH 10ML SYR IVF SCH (20:02)
[2017-03-07] MEDS: METOPROLOL TARTRATE 25 MG TABLET PO SCH ×2 (20:23→20:26)
[2017-03-08] MEDS: PIPERACILLIN/TAZO/PMX 3.375GM 50 ML IV SCH ×4 (02:07→20:14)
[2017-03-08 04:09] VITALS: BP 166/78
[2017-03-08] MEDS: D5%-LR+KCL 20MEQ 1,000 ML IV SCH (05:21)
[2017-03-08 05:25] LABS: HEMATOCRIT 30.6 % (34.6-47.8); HEMOGLOBIN 10.1 g/dL (11.7-16.4); WHITE BLOOD COUNT 14.8 x10^3/uL (3.4-10)
[2017-03-08 05:40] LABS: BLOOD UREA NITROGEN 18 mg/dL (7-18)
[2017-03-08 05:41] LABS: ASPARTATE AMINO TRANSFERASE 128 U/L (15-37)
[2017-03-08 07:47] VITALS: BP 171/70
[2017-03-08] MEDS: METOPROLOL TARTRATE 25 MG TABLET PO SCH ×2 (08:09→20:36)
[2017-03-08] MEDS: CLOPIDOGREL 75 MG TABLET PO SCH (08:09)
[2017-03-08] MEDS: METRONIDAZOLE PMX 500MG/100ML 100 ML IV SCH ×3 (08:09→23:23)
[2017-03-08] MEDS: INSULIN REGULAR 100 UNITS/ML, 3ML VIAL SQ-INSULIN SCH ×4 (08:10→20:48)
[2017-03-08] MEDS ORDERED: MAGNESIUM SULFATE PMX 2GM/50ML 50 ML IV ONE (08:30)
[2017-03-08] MEDS: POTASSIUM CHLORIDE 40 MEQ in D5%-LACTATED RINGERS 1,000 ML IV SCH ×2 (08:57→20:15)
[2017-03-08] MEDS: SODIUM CHLORIDE FLUSH 10ML SYR IVF SCH ×2 (09:00→20:15)
[2017-03-08] MEDS: URSODIOL 300 MG CAPSULE PO SCH ×4 (09:29→21:00)
[2017-03-08 14:00] VITALS: BP 138/65
[2017-03-08 20:04] VITALS: BP 135/64
[2017-03-09] MEDS: PIPERACILLIN/TAZO/PMX 3.375GM 50 ML IV SCH ×4 (02:10→20:06)
[2017-03-09 02:41] VITALS: BP 144/70
[2017-03-09 06:11] LABS: BLOOD UREA NITROGEN 11 mg/dL (7-18)
[2017-03-09 06:14] LABS: ASPARTATE AMINO TRANSFERASE 51 U/L (15-37)
[2017-03-09] MEDS: METRONIDAZOLE PMX 500MG/100ML 100 ML IV SCH ×2 (08:15→15:39)
[2017-03-09] MEDS: INSULIN REGULAR 100 UNITS/ML, 3ML VIAL SQ-INSULIN SCH ×4 (08:16→21:00)
[2017-03-09 08:20] VITALS: BP 144/73
[2017-03-09] MEDS: METOPROLOL TARTRATE 25 MG TABLET PO SCH ×2 (08:34→20:06)
[2017-03-09] MEDS: CLOPIDOGREL 75 MG TABLET PO SCH (08:34)
[2017-03-09] MEDS: URSODIOL 300 MG CAPSULE PO SCH ×3 (08:34→20:06)
[2017-03-09] MEDS: SODIUM CHLORIDE FLUSH 10ML SYR IVF SCH ×2 (08:35→20:06)
[2017-03-09] MEDS: POTASSIUM CHLORIDE 40 MEQ in D5%-LACTATED RINGERS 1,000 ML IV SCH (09:08)
[2017-03-09] MEDS: D5%-0.9% NACL 1,000 ML IV SCH (12:21)
[2017-03-09 14:32] VITALS: BP 163/72
[2017-03-09 20:59] VITALS: BP 185/79
[2017-03-10] MEDS: METRONIDAZOLE PMX 500MG/100ML 100 ML IV SCH ×3 (00:22→15:51)
[2017-03-10] MEDS: D5%-0.9% NACL 1,000 ML IV SCH ×3 (00:25→21:00)
[2017-03-10] MEDS: PIPERACILLIN/TAZO/PMX 3.375GM 50 ML IV SCH ×4 (02:23→21:36)
[2017-03-10 03:35] VITALS: BP 198/85
[2017-03-10 05:59] LABS: HEMATOCRIT 31.2 % (34.6-47.8); HEMOGLOBIN 10.3 g/dL (11.7-16.4); WHITE BLOOD COUNT 13.7 x10^3/uL (3.4-10)
[2017-03-10 06:14] LABS: BLOOD UREA NITROGEN 8 mg/dL (7-18)
[2017-03-10 06:19] LABS: ASPARTATE AMINO TRANSFERASE 27 U/L (15-37)
[2017-03-10 07:43] VITALS: BP 178/81
[2017-03-10] MEDS: SODIUM CHLORIDE FLUSH 10ML SYR IVF SCH ×2 (09:02→21:00)
[2017-03-10] MEDS: URSODIOL 300 MG CAPSULE PO SCH ×3 (09:03→21:36)
[2017-03-10] MEDS: METOPROLOL TARTRATE 25 MG TABLET PO SCH ×2 (09:03→21:36)
[2017-03-10] MEDS: CLOPIDOGREL 75 MG TABLET PO SCH (09:03)
[2017-03-10] MEDS: INSULIN REGULAR 100 UNITS/ML, 3ML VIAL SQ-INSULIN SCH ×4 (09:04→21:37)
[2017-03-10 14:24] VITALS: BP 163/79
[2017-03-10 19:56] VITALS: BP 186/86
[2017-03-11] MEDS: METRONIDAZOLE PMX 500MG/100ML 100 ML IV SCH ×3 (00:02→15:39)
[2017-03-11 00:30] VITALS: BP 190/77
[2017-03-11] MEDS: D5%-0.9% NACL 1,000 ML IV SCH (03:00)
[2017-03-11] MEDS: PIPERACILLIN/TAZO/PMX 3.375GM 50 ML IV SCH ×4 (03:29→22:22)
[2017-03-11 05:52] LABS: HEMATOCRIT 30.9 % (34.6-47.8); WHITE BLOOD COUNT 12.5 x10^3/uL (3.4-10)
[2017-03-11] MEDS: INSULIN REGULAR 100 UNITS/ML, 3ML VIAL SQ-INSULIN SCH ×4 (07:00→22:26)
[2017-03-11] MEDS: METOPROLOL TARTRATE 25 MG TABLET PO SCH ×3 (07:28→22:23)
[2017-03-11] MEDS: SODIUM CHLORIDE FLUSH 10ML SYR IVF SCH ×2 (07:29→22:26)
[2017-03-11] MEDS: URSODIOL 300 MG CAPSULE PO SCH ×2 (07:29→15:08)
[2017-03-11] MEDS: CLOPIDOGREL 75 MG TABLET PO SCH ×2 (07:30→10:23)
[2017-03-11 07:39] VITALS: BP 188/72
[2017-03-11] MEDS: LISINOPRIL 10 MG TABLET PO SCH ×3 (12:09→22:24)
[2017-03-11] MEDS: hydrALAzine 20 MG/ML, 1ML IV PRN ×2 (13:58→23:52)
[2017-03-11 13:59] VITALS: BP 213/78
[2017-03-11 15:33] VITALS: BP 145/70
[2017-03-11] MEDS ORDERED: BUPIVACAINE/PF 0.5% ONE (16:55)
[2017-03-11] MEDS ORDERED: KETAMINE 10 MG/ML, 20ML ONE (17:09)
[2017-03-11] MEDS ORDERED: FENTANYL PF 100 MCG/2ML ONE ×2 (17:09→19:19)
[2017-03-11] MEDS ORDERED: ONDANSETRON 2MG/ML, 2ML ONE (17:25)
[2017-03-11] MEDS ORDERED: LIDOCAINE-MPF 2% ,5ML ONE (17:25)
[2017-03-11] MEDS ORDERED: EPHEDRINE 50 MG/ML, 1ML ONE (17:25)
[2017-03-11] MEDS ORDERED: NEOSTIGMINE 1 MG/ML, 10ML ONE (17:25)
[2017-03-11] MEDS ORDERED: ROCURONIUM 10 MG/ML,10ML ONE ×3 (17:25)
[2017-03-11] MEDS ORDERED: GLYCOPYRROLATE 0.2MG/1ML, 5ML ONE (17:25)
[2017-03-11] MEDS ORDERED: CEFAZOLIN 1,000 MG ONE (17:25)
[2017-03-11] MEDS ORDERED: PROPOFOL 10 MG/ML, 20ML ONE (17:25)
[2017-03-11] MEDS ORDERED: OXYcodone 5 MG/5 ML ORAL.SOL UDC PO PRN (18:30)
[2017-03-11] MEDS ORDERED: morphine SULFATE 10 MG/ML, 1ML IV PRN (18:30)
[2017-03-11] MEDS ORDERED: FENTANYL PF 100 MCG/2ML IV PRN (18:30)
[2017-03-11] MEDS ORDERED: PROMETHAZINE 25 MG/ML, 1ML IV PRN (18:30)
[2017-03-11] MEDS ORDERED: HYDROmorphone 1 MG/ML, 1ML ONE (19:58)
[2017-03-11] MEDS ORDERED: MORPHINE SULFATE 4 MG/ML, 1ML ONE (20:05)
[2017-03-11 20:40] VITALS: BP 118/70
[2017-03-11 23:48] VITALS: BP 160/75
[2017-03-12] MEDS: METRONIDAZOLE PMX 500MG/100ML 100 ML IV SCH ×3 (00:15→16:27)
[2017-03-12 03:00] VITALS: BP 131/53
[2017-03-12] MEDS: PIPERACILLIN/TAZO/PMX 3.375GM 50 ML IV SCH ×4 (05:04→23:38)
[2017-03-12 05:34] LABS: ASPARTATE AMINO TRANSFERASE 52 U/L (15-37); BLOOD UREA NITROGEN 11 mg/dL (7-18); HEMATOCRIT 30.7 % (34.6-47.8); HEMOGLOBIN 9.9 g/dL (11.7-16.4); WHITE BLOOD COUNT 18.1 x10^3/uL (3.4-10)
[2017-03-12 07:57] VITALS: BP 100/64
[2017-03-12] MEDS: METOPROLOL TARTRATE 25 MG TABLET PO SCH ×3 (08:24→22:05)
[2017-03-12] MEDS: INSULIN REGULAR 100 UNITS/ML, 3ML VIAL SQ-INSULIN SCH ×4 (08:24→22:02)
[2017-03-12] MEDS: LISINOPRIL 10 MG TABLET PO SCH ×3 (08:25→22:05)
[2017-03-12] MEDS: SODIUM CHLORIDE FLUSH 10ML SYR IVF SCH ×2 (08:25→22:04)
[2017-03-12] MEDS ORDERED: MAGNESIUM SULFATE PMX 2GM/50ML 50 ML IV ONE (09:00)
[2017-03-12 14:36] VITALS: BP 129/60
[2017-03-12 18:42] VITALS: BP 157/58
[2017-03-12] MEDS ORDERED: SODIUM CHLORIDE 0.9% 1,000ML IVBOLUS ONE (19:00)
[2017-03-13] MEDS: METRONIDAZOLE PMX 500MG/100ML 100 ML IV SCH ×3 (00:23→16:57)
[2017-03-13 03:14] VITALS: BP 168/70
[2017-03-13] MEDS: PIPERACILLIN/TAZO/PMX 3.375GM 50 ML IV SCH ×3 (06:03→18:10)
[2017-03-13 07:54] VITALS: BP 182/77
[2017-03-13] MEDS: INSULIN REGULAR 100 UNITS/ML, 3ML VIAL SQ-INSULIN SCH ×4 (08:03→21:37)
[2017-03-13] MEDS: METOPROLOL TARTRATE 25 MG TABLET PO SCH ×3 (08:25→21:38)
[2017-03-13] MEDS: LISINOPRIL 10 MG TABLET PO SCH ×3 (08:25→21:38)
[2017-03-13] MEDS: hydrALAzine 20 MG/ML, 1ML IV PRN (08:25)
[2017-03-13] MEDS: MAGNESIUM CHLORIDE 64 MG TABLET.DR PO SCH (08:25)
[2017-03-13] MEDS: SODIUM CHLORIDE FLUSH 10ML SYR IVF SCH ×2 (08:27→21:38)
[2017-03-13 09:17] VITALS: BP 132/61
[2017-03-13 11:50] VITALS: BP 145/78
[2017-03-13 11:58] LABS: HEMATOCRIT 31.1 % (34.6-47.8); HEMOGLOBIN 10.2 g/dL (11.7-16.4); WHITE BLOOD COUNT 14.9 x10^3/uL (3.4-10)
[2017-03-13 12:09] LABS: BLOOD UREA NITROGEN 12 mg/dL (7-18)
[2017-03-13 13:42] VITALS: BP 110/56
[2017-03-13 19:56] VITALS: BP 157/66
[2017-03-14] MEDS: PIPERACILLIN/TAZO/PMX 3.375GM 50 ML IV SCH ×5 (00:44→23:47)
[2017-03-14] MEDS: METRONIDAZOLE PMX 500MG/100ML 100 ML IV SCH ×3 (01:18→17:15)
[2017-03-14 02:26] VITALS: BP 130/58
[2017-03-14] MEDS: INSULIN REGULAR 100 UNITS/ML, 3ML VIAL SQ-INSULIN SCH ×4 (07:47→22:01)
[2017-03-14] MEDS: LISINOPRIL 10 MG TABLET PO SCH ×2 (07:48→21:57)
[2017-03-14] MEDS: METOPROLOL TARTRATE 25 MG TABLET PO SCH ×2 (07:48→21:57)
[2017-03-14] MEDS: MAGNESIUM CHLORIDE 64 MG TABLET.DR PO SCH ×2 (07:49→08:03)
[2017-03-14 07:52] VITALS: BP 178/70
[2017-03-14 08:50] VITALS: BP 149/60
[2017-03-14] MEDS: SODIUM CHLORIDE FLUSH 10ML SYR IVF SCH ×2 (08:50→21:58)
[2017-03-14 15:25] VITALS: BP 156/69
[2017-03-14 19:21] VITALS: BP 145/51
[2017-03-15] MEDS: METRONIDAZOLE PMX 500MG/100ML 100 ML IV SCH ×2 (00:38→09:32)
[2017-03-15 02:04] VITALS: BP 159/61
[2017-03-15 05:41] LABS: HEMOGLOBIN 9.8 g/dL (11.7-16.4)
[2017-03-15] MEDS: PIPERACILLIN/TAZO/PMX 3.375GM 50 ML IV SCH ×3 (05:41→19:47)
[2017-03-15 06:01] LABS: BLOOD UREA NITROGEN 16 mg/dL (7-18)
[2017-03-15 08:29] VITALS: BP 153/65
[2017-03-15] MEDS: SODIUM CHLORIDE FLUSH 10ML SYR IVF SCH ×2 (09:32→21:12)
[2017-03-15] MEDS: INSULIN REGULAR 100 UNITS/ML, 3ML VIAL SQ-INSULIN SCH ×4 (09:32→21:11)
[2017-03-15] MEDS: MAGNESIUM CHLORIDE 64 MG TABLET.DR PO SCH (09:34)
[2017-03-15] MEDS: LISINOPRIL 10 MG TABLET PO SCH (09:35)
[2017-03-15] MEDS: METOPROLOL TARTRATE 25 MG TABLET PO SCH ×2 (09:35→21:12)
[2017-03-15] MEDS: ALBUMIN HUMAN 25% 100 ML IV SCH ×2 (12:28→18:07)
[2017-03-15] MEDS ORDERED: POTASSIUM CHLORIDE 40 MEQ in SODIUM CHLORIDE 0.9% 500 ML IV ONE (12:30)
[2017-03-15] MEDS: HEPARIN 5,000 UNITS/ML, 1ML SQ SCH ×2 (13:50→19:47)
[2017-03-15 15:23] VITALS: BP 162/76
[2017-03-15] MEDS: LACTOBACILLUS CHEW TABLET PO SCH ×2 (16:22→21:12)
[2017-03-15] MEDS: URSODIOL 300 MG CAPSULE PO SCH ×2 (16:29→21:12)
[2017-03-15] MEDS: hydrALAzine 20 MG/ML, 1ML IV PRN (19:17)
[2017-03-15 19:45] VITALS: BP 113/59
[2017-03-15] MEDS ORDERED: URSODIOL 300 MG CAPSULE PO SCH (21:00)
[2017-03-15] MEDS: LISINOPRIL 20 MG TABLET PO SCH (21:12)
[2017-03-15] MEDS: LOVASTATIN 40 MG TABLET PO SCH (21:12)
[2017-03-16] MEDS: ALBUMIN HUMAN 25% 100 ML IV SCH ×3 (00:49→15:05)
[2017-03-16 01:50] VITALS: BP 100/55
[2017-03-16] MEDS: HEPARIN 5,000 UNITS/ML, 1ML SQ SCH ×3 (05:18→20:25)
[2017-03-16] MEDS: PIPERACILLIN/TAZO/PMX 3.375GM 50 ML IV SCH ×4 (05:18→22:52)
[2017-03-16 05:49] LABS: HEMATOCRIT 26.7 % (34.6-47.8); WHITE BLOOD COUNT 10.9 x10^3/uL (3.4-10)
[2017-03-16 06:19] LABS: ASPARTATE AMINO TRANSFERASE 6 U/L (15-37); BLOOD UREA NITROGEN 14 mg/dL (7-18)
[2017-03-16] MEDS: INSULIN REGULAR 100 UNITS/ML, 3ML VIAL SQ-INSULIN SCH ×4 (07:51→22:53)
[2017-03-16] MEDS: SODIUM CHLORIDE FLUSH 10ML SYR IVF SCH ×2 (07:51→22:53)
[2017-03-16 08:04] VITALS: BP 183/72
[2017-03-16] MEDS: URSODIOL 300 MG CAPSULE PO SCH ×4 (09:21→20:25)
[2017-03-16] MEDS: LACTOBACILLUS CHEW TABLET PO SCH ×4 (09:22→20:25)
[2017-03-16] MEDS: LISINOPRIL 20 MG TABLET PO SCH ×3 (09:22→20:26)
[2017-03-16] MEDS: METOPROLOL TARTRATE 25 MG TABLET PO SCH ×3 (09:22→20:27)
[2017-03-16] MEDS: hydrALAzine 20 MG/ML, 1ML IV PRN ×2 (09:40→19:35)
[2017-03-16 14:59] VITALS: BP 162/75
[2017-03-16] MEDS: ERGOCALCIFEROL 50,000 UNIT CAPSULE PO SCH (15:06)
[2017-03-16 19:30] VITALS: BP 193/70
[2017-03-16 20:00] VITALS: BP_SYST 114; BP_SYST 155; BP_SYST 193; BP_DIAS 55; BP_DIAS 63; BP_DIAS 70
[2017-03-16] MEDS: LOVASTATIN 40 MG TABLET PO SCH (20:25)
[2017-03-17 01:51] VITALS: BP 149/78
[2017-03-17 05:08] LABS: HEMATOCRIT 28.9 % (34.6-47.8); HEMOGLOBIN 9.4 g/dL (11.7-16.4); WHITE BLOOD COUNT 12.6 x10^3/uL (3.4-10)
[2017-03-17] MEDS: PIPERACILLIN/TAZO/PMX 3.375GM 50 ML IV SCH ×2 (05:34→11:13)
[2017-03-17] MEDS: HEPARIN 5,000 UNITS/ML, 1ML SQ SCH ×3 (05:35→21:55)
[2017-03-17 07:06] VITALS: BP 182/72
[2017-03-17] MEDS: INSULIN REGULAR 100 UNITS/ML, 3ML VIAL SQ-INSULIN SCH ×4 (08:14→21:55)
[2017-03-17] MEDS: hydrALAzine 20 MG/ML, 1ML IV PRN (08:51)
[2017-03-17] MEDS: SODIUM CHLORIDE FLUSH 10ML SYR IVF SCH ×2 (09:00→21:55)
[2017-03-17] MEDS: LACTOBACILLUS CHEW TABLET PO SCH ×3 (09:00→21:55)
[2017-03-17] MEDS: URSODIOL 300 MG CAPSULE PO SCH ×3 (12:13→21:55)
[2017-03-17] MEDS: METOPROLOL TARTRATE 25 MG TABLET PO SCH ×2 (12:14→21:56)
[2017-03-17] MEDS: LISINOPRIL 20 MG TABLET PO SCH ×2 (12:14→21:56)
[2017-03-17 13:38] VITALS: BP 157/66
[2017-03-17 21:21] VITALS: BP 153/66
[2017-03-17] MEDS: LOVASTATIN 40 MG TABLET PO SCH (21:56)
[2017-03-18 02:26] VITALS: BP 166/62
[2017-03-18] MEDS: hydrALAzine 20 MG/ML, 1ML IV PRN (02:41)
[2017-03-18] MEDS: HEPARIN 5,000 UNITS/ML, 1ML SQ SCH ×3 (05:02→19:42)
[2017-03-18 05:16] LABS: HEMATOCRIT 28.4 % (34.6-47.8); HEMOGLOBIN 9.2 g/dL (11.7-16.4); WHITE BLOOD COUNT 12.7 x10^3/uL (3.4-10)
[2017-03-18 05:21] LABS: BLOOD UREA NITROGEN 18 mg/dL (7-18)
[2017-03-18 07:16] VITALS: BP 164/66
[2017-03-18] MEDS: LISINOPRIL 20 MG TABLET PO SCH ×2 (08:41→19:42)
[2017-03-18] MEDS: LACTOBACILLUS CHEW TABLET PO SCH ×3 (08:41→19:42)
[2017-03-18] MEDS: METOPROLOL TARTRATE 25 MG TABLET PO SCH ×2 (08:41→19:42)
[2017-03-18] MEDS: URSODIOL 300 MG CAPSULE PO SCH ×3 (08:41→19:42)
[2017-03-18] MEDS: SODIUM CHLORIDE FLUSH 10ML SYR IVF SCH ×2 (08:41→19:42)
[2017-03-18] MEDS: INSULIN REGULAR 100 UNITS/ML, 3ML VIAL SQ-INSULIN SCH ×4 (08:42→20:52)
[2017-03-18] MEDS ORDERED: AMLO5TAB4 PO (12:56)
[2017-03-18] MEDS ORDERED: LISI-170 PO (12:56)
[2017-03-18] MEDS ORDERED: ERGO500017 PO (12:56)
[2017-03-18] MEDS ORDERED: URSO300C12 PO (12:56)
[2017-03-18 13:23] VITALS: BP 139/64
[2017-03-18] MEDS: AMLODIPINE 5 MG TABLET PO SCH (13:24)
[2017-03-18 19:38] VITALS: BP 163/70
[2017-03-18] MEDS: LOVASTATIN 40 MG TABLET PO SCH (19:41)
[2017-03-19 02:08] VITALS: BP 171/64
[2017-03-19 02:42] VITALS: BP 158/69
[2017-03-19] MEDS: HEPARIN 5,000 UNITS/ML, 1ML SQ SCH ×3 (04:50→20:36)
[2017-03-19] MEDS: INSULIN REGULAR 100 UNITS/ML, 3ML VIAL SQ-INSULIN SCH ×4 (06:26→20:38)
[2017-03-19 06:48] VITALS: BP 178/69
[2017-03-19] MEDS: LISINOPRIL 20 MG TABLET PO SCH ×2 (09:00→20:37)
[2017-03-19] MEDS: METOPROLOL TARTRATE 25 MG TABLET PO SCH ×2 (09:00→20:37)
[2017-03-19] MEDS: AMLODIPINE 5 MG TABLET PO SCH (09:00)
[2017-03-19] MEDS: LACTOBACILLUS CHEW TABLET PO SCH ×3 (09:00→20:37)
[2017-03-19] MEDS: URSODIOL 300 MG CAPSULE PO SCH ×3 (09:00→20:37)
[2017-03-19] MEDS: SODIUM CHLORIDE FLUSH 10ML SYR IVF SCH ×2 (09:00→20:36)
[2017-03-19 13:35] VITALS: BP 147/68
[2017-03-19 20:24] VITALS: BP 189/71
[2017-03-19] MEDS: LOVASTATIN 40 MG TABLET PO SCH (20:37)
[2017-03-20 02:24] VITALS: BP 137/59
[2017-03-20] MEDS: HEPARIN 5,000 UNITS/ML, 1ML SQ SCH ×3 (04:19→20:37)
[2017-03-20] MEDS: INSULIN REGULAR 100 UNITS/ML, 3ML VIAL SQ-INSULIN SCH ×4 (06:42→20:51)
[2017-03-20 07:15] VITALS: BP 157/63
[2017-03-20] MEDS: METOPROLOL TARTRATE 25 MG TABLET PO SCH ×2 (09:01→20:36)
[2017-03-20] MEDS: AMLODIPINE 5 MG TABLET PO SCH (09:01)
[2017-03-20] MEDS: LISINOPRIL 20 MG TABLET PO SCH ×2 (09:01→20:37)
[2017-03-20] MEDS: SODIUM CHLORIDE FLUSH 10ML SYR IVF SCH ×2 (09:01→20:32)
[2017-03-20] MEDS: URSODIOL 300 MG CAPSULE PO SCH ×3 (09:01→20:36)
[2017-03-20] MEDS: LACTOBACILLUS CHEW TABLET PO SCH ×3 (09:01→20:36)
[2017-03-20 12:41] VITALS: BP 174/67
[2017-03-20] MEDS: hydrALAzine 20 MG/ML, 1ML IV PRN (13:22)
[2017-03-20] MEDS ORDERED: OXYcodone IR 5MG TABLET PO PRN (19:30)
[2017-03-20 20:00] VITALS: BP 173/53
[2017-03-20] MEDS: LOVASTATIN 40 MG TABLET PO SCH (20:36)
[2017-03-21 02:48] VITALS: BP 183/70
[2017-03-21] MEDS: hydrALAzine 20 MG/ML, 1ML IV PRN (02:51)
[2017-03-21] MEDS: HEPARIN 5,000 UNITS/ML, 1ML SQ SCH ×3 (04:37→21:11)
[2017-03-21 05:51] LABS: HEMATOCRIT 28.6 % (34.6-47.8); HEMOGLOBIN 9.5 g/dL (11.7-16.4); WHITE BLOOD COUNT 12.1 x10^3/uL (3.4-10)
[2017-03-21 05:55] LABS: BLOOD UREA NITROGEN 14 mg/dL (7-18)
[2017-03-21] MEDS: INSULIN REGULAR 100 UNITS/ML, 3ML VIAL SQ-INSULIN SCH ×4 (06:11→21:12)
[2017-03-21 07:09] VITALS: BP 128/62
[2017-03-21] MEDS: METOPROLOL TARTRATE 25 MG TABLET PO SCH ×2 (07:57→23:08)
[2017-03-21] MEDS: LACTOBACILLUS CHEW TABLET PO SCH ×3 (07:57→21:12)
[2017-03-21] MEDS: SODIUM CHLORIDE FLUSH 10ML SYR IVF SCH ×2 (07:57→21:23)
[2017-03-21] MEDS: AMLODIPINE 5 MG TABLET PO SCH (07:57)
[2017-03-21] MEDS: URSODIOL 300 MG CAPSULE PO SCH ×3 (07:57→21:12)
[2017-03-21] MEDS: LISINOPRIL 20 MG TABLET PO SCH ×2 (07:57→21:12)
[2017-03-21 12:57] VITALS: BP 131/50
[2017-03-21] MEDS: LOVASTATIN 40 MG TABLET PO SCH (21:00)
[2017-03-21 21:05] VITALS: BP 165/73
[2017-03-22 03:37] VITALS: BP 192/76
[2017-03-22] MEDS: hydrALAzine 20 MG/ML, 1ML IV PRN (03:50)
[2017-03-22] MEDS: HEPARIN 5,000 UNITS/ML, 1ML SQ SCH ×3 (06:15→22:35)
[2017-03-22] MEDS: INSULIN REGULAR 100 UNITS/ML, 3ML VIAL SQ-INSULIN SCH ×4 (07:00→21:00)
[2017-03-22 07:08] VITALS: BP 153/63
[2017-03-22] MEDS: METOPROLOL TARTRATE 25 MG TABLET PO SCH ×3 (09:00→22:35)
[2017-03-22] MEDS: LISINOPRIL 20 MG TABLET PO SCH ×3 (09:00→22:36)
[2017-03-22] MEDS: AMLODIPINE 5 MG TABLET PO SCH ×2 (09:00→10:33)
[2017-03-22] MEDS: URSODIOL 300 MG CAPSULE PO SCH ×4 (09:00→22:35)
[2017-03-22] MEDS: LACTOBACILLUS CHEW TABLET PO SCH ×4 (09:00→22:35)
[2017-03-22 10:07] LABS: HEMATOCRIT 29.1 % (34.6-47.8); HEMOGLOBIN 9.8 g/dL (11.7-16.4); WHITE BLOOD COUNT 11.2 x10^3/uL (3.4-10)
[2017-03-22 10:15] LABS: BLOOD UREA NITROGEN 13 mg/dL (7-18)
[2017-03-22] MEDS: SODIUM CHLORIDE FLUSH 10ML SYR IVF SCH ×2 (10:33→22:34)
[2017-03-22 13:36] VITALS: BP 139/82
[2017-03-22 20:05] VITALS: BP 153/67
[2017-03-22] MEDS: LOVASTATIN 40 MG TABLET PO SCH (21:00)
[2017-03-23 02:44] VITALS: BP 138/71
[2017-03-23] MEDS: HEPARIN 5,000 UNITS/ML, 1ML SQ SCH ×2 (05:30→13:30)
[2017-03-23 05:42] LABS: HEMATOCRIT 28.2 % (34.6-47.8); HEMOGLOBIN 9.5 g/dL (11.7-16.4); WHITE BLOOD COUNT 10.6 x10^3/uL (3.4-10)
[2017-03-23 06:08] LABS: BLOOD UREA NITROGEN 12 mg/dL (7-18)
[2017-03-23 06:57] VITALS: BP 182/61
[2017-03-23] MEDS: INSULIN REGULAR 100 UNITS/ML, 3ML VIAL SQ-INSULIN SCH ×2 (07:00→11:00)
[2017-03-23] MEDS: METOPROLOL TARTRATE 25 MG TABLET PO SCH ×2 (09:00→11:18)
[2017-03-23] MEDS: SODIUM CHLORIDE FLUSH 10ML SYR IVF SCH (09:00)
[2017-03-23] MEDS: AMLODIPINE 5 MG TABLET PO SCH ×2 (09:00→11:17)
[2017-03-23] MEDS: LACTOBACILLUS CHEW TABLET PO SCH ×2 (09:00→11:17)
[2017-03-23] MEDS: URSODIOL 300 MG CAPSULE PO SCH ×2 (09:00→11:17)
[2017-03-23] MEDS: LISINOPRIL 20 MG TABLET PO SCH (11:17)
[2017-03-23] MEDS: hydrALAzine 20 MG/ML, 1ML IV PRN (11:34)
[2017-03-23 11:47] VITALS: BP 185/69
[2017-03-23 11:49] VITALS: BP 135/52
[2017-03-23 13:23] VITALS: BP 121/61
[2017-03-23] MEDS: ERGOCALCIFEROL 50,000 UNIT CAPSULE PO SCH (13:30)
== END 2017-03-23 14:16 | DRG 853 ==
LOC: ED 13:13 → EDIP 14:25 → 4NOR 15:37
PROVIDERS: ADMIT Internal Medicine; ATTEND Internal Medicine
PROC: 0T9B70Z Drainage of Bladder with Drainage Device, Via Natural or Artificial Opening (ICD-10-PCS; 2017-03-07)
PROC: 0FT44ZZ Resection of Gallbladder, Percutaneous Endoscopic Approach (ICD-10-PCS; principal; 2017-03-11 17:00)
DX: A41.9 Sepsis, unspecified organism (principal); K85.10 Biliary acute pancreatitis without necrosis or infection; K72.00 Acute and subacute hepatic failure without coma; N17.0 Acute kidney failure with tubular necrosis; E43 Unspecified severe protein-calorie malnutrition; K81.0 Acute cholecystitis; R53.2 Functional quadriplegia; E11.22 Type 2 diabetes mellitus with diabetic chronic kidney disease; I13.0 Hypertensive heart and chronic kidney disease with heart failure and stage 1 through stage 4 chronic kidney disease, or unspecified chronic kidney disease; I50.9 Heart failure, unspecified; N39.0 Urinary tract infection, site not specified; E78.5 Hyperlipidemia, unspecified; E83.42 Hypomagnesemia; E87.6 Hypokalemia; F01.50 Vascular dementia, unspecified severity, without behavioral disturbance, psychotic disturbance, mood disturbance, and anxiety; H40.9 Unspecified glaucoma; K57.90 Diverticulosis of intestine, part unspecified, without perforation or abscess without bleeding; M81.0 Age-related osteoporosis without current pathological fracture; N18.2 Chronic kidney disease, stage 2 (mild); Z66 Do not resuscitate; Z79.84 Long term (current) use of oral hypoglycemic drugs; Z79.02 Long term (current) use of antithrombotics/antiplatelets; Z79.899 Other long term (current) drug therapy; Z86.73 Personal history of transient ischemic attack (TIA), and cerebral infarction without residual deficits; Z90.49 Acquired absence of other specified parts of digestive tract; Z90.710 Acquired absence of both cervix and uterus; Z68.24 Body mass index [BMI] 24.0-24.9, adult
CPT/HCPCS: 36415; 70450; 74022; 74177; 80048; 80053; 81001; 82040; 82140; 82306; 82607; 82962; 83605; 83690; 83735; 84100; 84439; 84443; 85025; 85610; 85730; 87040; 87086; 87324; 88304; 93005; 96361; 96374; J0690; J1644; J1815; J2405; J2543; J2704; J2710; J3010; J3480; J3490; J7042; P9047; Q9967; J0360; J2270; J3475; J7030; J7040; J7121